=== PATIENT | female | born 1935 | race Caucasian/White ===

== ENCOUNTER 2016-09-28 09:44 | Emergency (ER) | payer MEDICARE ==
[2016-09-28 12:02] VITALS: BP 133/84
--- NOTE | 2016-09-28 12:10 | UC ---
Lower Extremity/Ankle HPI - HPI Summary HPI Summary: 1. Left painful ankle: Onset: 3-4 weeks. Palliative/provocative: Nothing makes it better or worse. Oh the days that there is pain, walking makes it worse. Quality: Stabbing, ache. Region: Left ankle. Severity:0/10 at this time. Time: Comes and goes. Associated symptoms: She states that she will get up in the morning and sometimes there is pain and sometimes there is no pain. Previous treatment: None--"I'm not good taking things unless someone tells me to take it." Fevers: None. Injury: NOne. * - History of Current Complaint Chief Complaint: UCLowerExtremity Stated Complaint: ANKLE PAIN Time Seen by Provider: 09/28/16 11:58 Hx Obtained From: Patient ?: No - Allergies/Home Medications Allergies/Adverse Reactions: Allergies Allergy/AdvReac Type Severity Reaction Status Date / Time Latex Allergy Itching Verified 09/28/16 10:25 Morphine Allergy EXTREME Verified 09/28/16 10:25 DIZZINESS PMH/Surg Hx/FS Hx/Imm Hx Previously Healthy: Yes Endocrine History Of: Denies: Diabetes, Thyroid Disease, Hyperthyroidism, Hypothyroidism, Dyslipidemia Cardiovascular History Of: Denies: Cardiac Disorders, Hypertension, Pacemaker/ICD, Myocardial Infarction , Congestive Heart Failure, Atrial Fibrillation, Deep Vein Thrombosis, Bleeding Disorders Respiratory History Of: Denies: COPD, Asthma, Bronchitis, Pneumonia, Pulmonary Embolism GI/ History Of: Denies: Gastroesophageal Reflux, Ulcer, Gastrointestinal Bleed, Gall Bladder Disease, Kidney Stones, Diverticulitis, Renal Disease, Urosepsis Neurological History Of: Denies: TIA, CVA, Dementia, Seizures, Migraine Psychological History Of: Denies: Anxiety, Depression, Bipolar Disorder, Schizophrenia, Post Traumatic Stress Disorder Cancer History Of: Reports: Breast Cancer Denies: Lung Cancer, Colorectal Cancer, Prostate Cancer, Cervical Cancer Other History Of: Negative For: HIV, Hepatitis B, Hepatitis C, Anticoagulant Therapy - Surgical History Surgical History: Yes Surgery Procedure, Year, and Place: mastectomy left breast 2005 - Family History Known Family History: Positive: Hypertension, Diabetes Negative: Cardiac Disease - Social History Occupation: Retired Alcohol Use: None Substance Use Type: None Smoking Status (MU): Never Smoked Tobacco Have You Smoked in the Last Year: No Review of Systems Constitutional: Negative Skin: Negative Eyes: Negative ENT: Negative Respiratory: Negative Cardiovascular: Negative Gastrointestinal: Negative Genitourinary: Negative Musculoskeletal: Arthralgia All Other Systems Reviewed And Are Negative: Yes Physical Exam Triage Information Reviewed: Yes Appearance: Well-Appearing, No Pain Distress, Well-Nourished Vital Signs: Initial Vital Signs Temp 97.7 F 09/28/16 10:21 Pulse 63 09/28/16 10:21 Resp 18 09/28/16 10:21 BP 143/57 09/28/16 10:21 Pulse Ox 99 09/28/16 10:21 Vital Signs Reviewed: Yes Eyes: Positive: Conjunctiva Clear. Negative: Discharge ENT: Positive: Normal ENT inspection, Hearing grossly normal. Negative: Nasal congestion, Nasal drainage, TM bulging, TM dull, TM red, Tonsillar swelling, Tonsillar exudate Dental: Negative: Gross Decay/Caries @, Dental Fracture @ Neck: Positive: Supple, Nontender, No Lymphadenopathy. Negative: Nuchal Rigidity Respiratory: Positive: Lungs clear, No respiratory distress, No accessory muscle use. Negative: Crackles, Stridor Cardiovascular: Positive: RRR, No Murmur, Pulses Normal Abdomen Description: Positive: Nontender, No Organomegaly, Soft. Negative: Distended, Guarding Musculoskeletal: Positive: Strength Intact, ROM Intact, No Edema, Other: - The area of concern of her left foot revealed no erythema or edema or tenderness to palpation. However, she points to the plantar surface of the foot at the instep and the tibiotalar joint. Neurological: Positive: Alert, Muscle Tone Normal Psychological: Positive: Age Appropriate Behavior, Consolable Skin: Negative: rashes, breakdown Lower Extremity Course/Dx - Course Course Of Treatment: Patient as told of my diagnostic impression and treatment recommendations. Multiple questions (including multiple repeated questions) were all answered. She states that she can not take pills so she was encourage to take children's ibuprofen 400-800 mg up to four times a day as needed. - Differential Dx/Diagnosis Provider Diagnoses: High blood pressure. History of breast cancer. Left plantar fasciitis. Tibio-talar joint arthritis. Discharge - Discharge Plan Condition: Stable Disposition: HOME Patient Education Materials: Osteoarthritis (ED), Plantar Fasciitis (ED) Referrals: Timothy Lai MD [Primary Care Provider] - 1 Week (Please take the children's ibuprofen from 200-800 mg four times a day as needed for pain. See your primary care provider in 1 weeks.)
== END 2016-09-28 12:45 | disposition home or self-care (01) ==
LOC: UCEAST 09:44
DX: M19.072 Primary osteoarthritis, left ankle and foot (principal); M72.2 Plantar fascial fibromatosis; R03.0 Elevated blood-pressure reading, without diagnosis of hypertension; Z85.3 Personal history of malignant neoplasm of breast; Z88.6 Allergy status to analgesic agent; Z91.040 Latex allergy status
CPT/HCPCS: 99211; G0463

== ENCOUNTER → 2018-07-19 15:33 | Emergency (ER) | payer MEDICARE ==
[~2018-07-19 15:33] MED LIST: Tetan/Diph/Pertus SYR(Tdap)* 0.5 ML SYR(BOOSTRIX) use SYR IM ONE
--- NOTE | 2018-07-19 18:50 | ED ---
Head Injury - HPI Summary HPI Summary: 83-year-old female presents with head injury today. States she slipped and hit her head backwards. She states her scalp is currently bleeding. She is not on any blood thinners. She denies any loss consciousness. She admits to mild headache. No nausea or vomiting. No visual changes. No neck pain. No other injury. tetanus is not up to date. - History Of Current Complaint Chief Complaint: EDHeadInjury Stated Complaint: FALL/HEAD INJURY Time Seen by Provider: 07/19/18 17:59 Pain Intensity: 0 - Allergies/Home Medications Allergies/Adverse Reactions: Allergies Allergy/AdvReac Type Severity Reaction Status Date / Time MS Latex [Latex] Allergy Itching Verified 07/19/18 15:35 MS Morphine [Morphine] Allergy EXTREME Verified 07/19/18 15:35 DIZZINESS PMH/Surg Hx/FS Hx/Imm Hx Endocrine/Hematology History: Denies: Hx Anticoagulant Therapy, Hx Diabetes, Hx Thyroid Disease Cardiovascular History: Denies: Hx Congestive Heart Failure, Hx Deep Vein Thrombosis, Hx Hypertension , Hx Myocardial Infarction, Hx Pacemaker/ICD Respiratory History: Denies: Hx Asthma, Hx Chronic Obstructive Pulmonary Disease (COPD), Hx Lung Cancer, Hx Pneumonia, Hx Pulmonary Embolism GI History: Denies: Hx Gall Bladder Disease, Hx Gastrointestinal Bleed, Hx Ulcer, Hx Urosepsis History: Denies: Hx Kidney Stones, Hx Renal Disease Musculoskeletal History: Denies: Hx Osteoporosis Sensory History: Reports: Hx Cataracts - BILATERAL, Hx Contacts or Glasses - CURRENTLY Denies: Hx Hearing Aid Opthamlomology History: Reports: Hx Cataracts - BILATERAL, Hx Contacts or Glasses - CURRENTLY Neurological History: Denies: Hx Dementia, Hx Migraine, Hx Seizures, Hx Transient Ischemic Attacks (TIA) Psychiatric History: Denies: Hx Anxiety, Hx Depression, Hx Schizophrenia, Hx Bipolar Disorder - Cancer History Cancer Type, Location and Year: Breast Hx Chemotherapy: No - ARIMIDEX X5 YEARS Hx Radiation Therapy: No - Surgical History Surgery Procedure, Year, and Place: mastectomy left breast 2005 Hx Anesthesia Reactions: No - Immunization History Immunizations Up to Date: No Infectious Disease History: No Infectious Disease History: Denies: Hx Hepatitis, Hx Human Immunodeficiency Virus (HIV), Traveled Outside the [place] in Last 30 Days - Family History Known Family History: Positive: Hypertension, Diabetes Negative: Cardiac Disease - Social History Alcohol Use: None Substance Use Type: Reports: None Smoking Status (MU): Never Smoked Tobacco Have You Smoked in the Last Year: No Review of Systems Negative: Fever Negative: Chest Pain Negative: Shortness Of Breath Positive: Other - laceration scalp Positive: Headache All Other Systems Reviewed And Are Negative: Yes Physical Exam Triage Information Reviewed: Yes Vital Signs On Initial Exam: Initial Vitals Temp Pulse Resp BP Pulse Ox 97.4 F 85 16 158/91 95 07/19/18 15:34 07/19/18 15:34 07/19/18 15:34 07/19/18 15:34 07/19/18 15:34 Vital Signs Reviewed: Yes Appearance: Positive: Well-Appearing Skin: Positive: Warm, Dry, Other - 1cm superficial scalp laceration Head/Face: Positive: Normal Head/Face Inspection, Other - no step off, racoon eyes, espinoza sign Eyes: Positive: Normal, EOMI, NANETTE, Conjunctiva Clear ENT: Positive: Normal ENT inspection, Pharynx normal, TMs normal Neck: Positive: Other: - nontender neck Respiratory/Lung Sounds: Positive: Clear to Auscultation, Breath Sounds Present Cardiovascular: Positive: Normal, RRR Musculoskeletal: Positive: Normal Neurological: Positive: Sensory/Motor Intact, Alert, Oriented to Person Place, Time, CN Intact II-III Psychiatric: Positive: Normal - [place] Coma Scale Best Eye Response: 4 - Spontaneous Best Motor Response: 6 - Obeys Commands Best Verbal Response: 5 - Oriented Coma Scale Total: 15 Procedures - Laceration/Wound Repair 1 Location: head Description: Linear Anesthesia: Local, 1.0%, Epi Length, Depth and Shape: 1cm superficial Irrigated w/ Saline (ccs): 50 Closure: [place] #__ - 1 Diagnostics - Vital Signs Vital Signs Temp Pulse Resp BP Pulse Ox 07/19/18 15:34 97.4 F 85 16 158/91 95 - Laboratory Lab Statement: Any lab studies that have been ordered have been reviewed, and results considered in the medical decision making process. - CT brain CT Interpretation Completed By: Radiologist Summary of CT Findings: IMPRESSION: No acute intracranial abnormality. Head Injury Course/Dx Course Of Treatment: 83-year-old female presents with head injury today. States she slipped and hit her head backwards. She states her scalp is currently bleeding. She is not on any blood thinners. She denies any loss consciousness. She admits to mild headache. No nausea or vomiting. No visual changes. No neck pain. No other injury. tetanus is not up to date. On exam has 1 cm superficial scalp laceration. Normal neuro exam. With age got CT. CT normal. Clean area and place 1 staple. Gave concussion precautions and told to follow-up with primary. Patient understands agrees with plan. - Diagnoses Differential Diagnosis/HQI/PQRI: Concussion Without LOC, Contusion, Intracranial Bleed, Laceration Provider Diagnoses: Head injury, Scalp laceration Discharge - Sign-Out/Discharge Documenting (check all that apply): Patient Departure - Discharge Plan Condition: Good Disposition: HOME Patient Education Materials: Head Injury (ED), Staple Care (ED) Referrals: Timothy Lai MD [Primary Care Provider] - Additional Instructions: Take Tylenol for pain every 6 hours as needed Do not scrub staple area Return to ED, urgent care or primary in 7-10 days to have colin removed Follow up with primary within 7 days Return to ED if develop signs of infection such as fever, spreading redness, or pus or any new or worsening symptoms - Billing Disposition and Condition Condition: GOOD Disposition: Home
[2018-07-19 19:14] VITALS: BP 145/89
== END | disposition home or self-care (01) ==
LOC: ED 15:33
DX: S01.01XA Laceration without foreign body of scalp, initial encounter (principal); S09.90XA Unspecified injury of head, initial encounter; W01.0XXA Fall on same level from slipping, tripping and stumbling without subsequent striking against object, initial encounter; Y92.9 Unspecified place or not applicable; R51 Headache
CPT/HCPCS: 12001; 70450; 90471; 90715; 99282